=== PATIENT | male | born 1980 | race Caucasian/White ===

== ENCOUNTER 2020-05-08 06:29 | Emergency (ER) | payer SELFPAY ==
[2020-05-08 06:35] VITALS: BP 163/88; PULSE 91; RESP 16; TEMP 36.5; O2SAT 96
--- NOTE | 2020-05-08 07:02 | W.ED.GENAD ---
Discharge Plan Disposition Patient Disposition: HOME Condition: Good Discharge Details Chief Complaint: Laceration Clinical Impression: Laceration of calf Primary Care Provider: Florentin Francis ED Provider: Ben Singh Home Meds and New Rx's Prescriptions: No Action No Known Home Meds RF: 0 Discharge Instructions Instructions: Laceration (ED) Additional Instructions: Please leave the dressing on for 24 hours, then you may remove and begin cleaning the wound at least twice a day with soap and water. Continue to apply antibiotic ointment. Do not directly soak the area. Watch for any signs of infection and return if any increasing redness, swelling, pain, drainage. Please return in 7 to 10 days to have the sutures removed. If you notice any worsening of your symptoms, or any new symptoms such as vomiting, diarrhea, fever, chills, shortness of breath, chest pain, numbness, weakness, or fainting , please return immediately to the emergency department for reevaluation. Please follow up with your primary care provider as soon as possible for reassessment and reevaluation. As always, it was a pleasure participating in your medical care today. Referrals: Florentin Francis [Primary Care Provider] - Medical Decision Making 40-year-old male whose tetanus is not not up-to-date presents today for laceration to his left calf. A binding cementer french cord hit the back of his left calf. No osseous tenderness or deformity. It struck the back gastrocnemius area. Exam demonstrates a triangular shaped laceration, involvement into the subcutaneous fat, but no involvement of the muscle or tendons. He demonstrates normal sensation, normal vascular exam distal to the injury site. Normal muscle strength. His pants were not cut. No indication for radiographic imaging at this time based on history and exam. The area was numbed, irrigated with copious amounts of normal saline chlorhexidine and subsequently suture. Patient tolerated this well. 5 simple interrupted nylon sutures for superficial component and 1 subcutaneous Vicryl suture. Discussed red flags which to return. I have extensively reviewed the treatment plan and discharge instructions with the patient. I have addressed all patient concerns at this time. The patient was made aware of what symptoms to monitor for that would warrant a return to the emergency department. Discussed the plan with the patient, they demonstrate verbal understanding and agreement with our assessment and plan at this time. HPI General Date/Time Provider Initiated Documentation: 05/08/20 06:31. HPI Narrative: Pleasant 40-year-old male with no significant past medical history presents today for laceration to his left calf. Patient states that he binding cementer french cord fell, and a solid metal corner hit his left calf. It did not cut his pants, but he did have a cut to the skin below. He denies any numbness tingling or weakness. He does admit to pain with ambulation. Tetanus has not been updated for quite some time. No other complaints at this time. No other modifying factors. Related Data Home Medications Medication Instructions Recorded Confirmed Unknown [No Known Home Meds] 05/08/20 05/08/20 Allergies Allergy/AdvReac Type Severity Reaction Status Date / Time amoxicillin Allergy Unverified 05/08/20 06:39 Penicillins Allergy Unverified 05/08/20 06:39 General Stated Complaint: Laceration DOUG: 3 Review of Systems All systems reviewed & are unremarkable except as noted in HPI and below PFSH Social History Smoking/Tobacco Use Status: Current every day Tobacco Type: cigarettes Alcohol Intake: current Alcohol Intake frequency: a few times a week Substance use type: does not use Do you feel safe at home: Yes Do you feel safe in your relationship?: Yes Exam Narrative Exam Narrative: 1.Const: Well-nourished, Well-developed, appearing stated age 2.Eyes: PERRL, no conjunctival injection, and symmetrical lids. 3.ENT: Atraumatic external nose and ears. Moist MM. Neck: Symmetric, trachea midline, No thyromegaly. 4.CVS: +S1/S2, No murmurs or gallops. Peripheral pulses 2+ and equal in all extremities. Brisk capillary refill in all extremities. 5.RESP: Unlabored respiratory effort. Clear to auscultation bilaterally. No wheezes rales or rhonchi 6.GI: Soft, Nontender/Nondistended, No hepatosplenomegaly. No guarding or rebound. 7.MSK: Normocephalic/left calf demonstrates triangular-shaped laceration, there is evidence of involvement with the subcutaneous fat, but no evidence of tendon or muscle involvement. The lateral medial edges are roughly 2 cm in length. Patient demonstrates a normal movement for flexion extension eversion and inversion of the foot, use of the gastrocnemius muscle demonstrates no signs of weakness. 8.Skin: Warm, Dry. Please see musculoskeletal 9.Neuro: juvenile probation officer II-XII grossly intact. Sensation grossly intact, no focal neurologic deficits. 10.Psych: (AAO) x3. Appropriate mood and affect Course Vital Signs Vital signs: Vital Signs Temperature 36.5 C 05/08/20 06:35 Pulse 91 H 05/08/20 06:35 Respiratory Rate 16 05/08/20 06:35 Blood Pressure 163/88 H 05/08/20 06:35 Pulse Oximetry 96 05/08/20 06:35 Temperature 36.5 C 05/08/20 06:35 Temperature Source Skin 05/08/20 06:35 Pulse 91 H 05/08/20 06:35 Respiratory Rate 16 05/08/20 06:35 Respiratory Effort Non-Labored 05/08/20 06:39 Blood Pressure 163/88 H 05/08/20 06:35 Blood Pressure Position Supine 05/08/20 06:35 Pulse Oximetry 96 05/08/20 06:35 Oxygen Delivery Method Room Air 05/08/20 06:35 Oxygen Flow Rate 0 05/08/20 06:35 Pain Level 5 05/08/20 06:35 Procedures Laceration Laceration 1: Site: lower extremity (Left calf) Side (If applicable): left Size (cm): 4 Description: irregular Depth: simple, single layer Local Anesthetic: Lidocaine 1% Amount of anesthesia used (mL): 5 Pre-repair: wound explored, irrigated extensively and deep structures intact Skin layer closed with: nylon Size (cm): 4-0 Number of sutures: 6 Technique: simple, interrupted Subcutaneous layer closed with: vicryl Size: 4-0 Number of sutures: 1 Technique: simple, interrupted
--- NOTE | 2020-05-08 07:28 | NUR.NOTE ---
Nursing Note:0720 Bacitracin, telfa, 2 x 2 dressing applied over sutures and then wrapped with roxana and coban. Distal CSM intact.
== END 2020-05-08 07:30 | disposition home or self-care (01) ==
PROVIDERS: Emergency Provider Student in an Organized Health Care Education/Training Program; PCP Family Medicine
DX: S81.822A Laceration with foreign body, left lower leg, initial encounter (principal); W31.89XA Contact with other specified machinery, initial encounter; Y99.0 Civilian activity done for income or pay
CPT/HCPCS: 12002; 90471

== ENCOUNTER 2020-05-16 05:58 | Emergency (ER) | payer SELFPAY ==
[2020-05-16 06:03] VITALS: BP 145/90; PULSE 73; RESP 20; TEMP 36.8; O2SAT 97
--- NOTE | 2020-05-16 06:06 | ED.GENADUL_ITS ---
Discharge Plan Disposition Patient Disposition: HOME Condition: Stable Discharge Details Chief Complaint: SutureRem Clinical Impression: Visit for suture removal Primary Care Provider: Florentin Francis ED Provider: Julien Pak Home Meds and New Rx's Prescriptions: No Action No Known Home Meds RF: 0 Discharge Instructions Instructions: Stitches Removal (ED) Medical Decision Making 40 yo male comes in with suture removal after having them placed on calf a week ago. Has no redness to the wound or pain and wound is well healed, removed 5 devine tures without incident and tolerated well, return precautions given Differential Diagnosis Differential Diagnosis: suture removal HPI General Mode of arrival: ambulatory . Date/Time Provider Initiated Documentation: 05/16/20 05:59 . Limitations to Documentation: no limitations . Information obtained by: patient . History of Present Illness 40 year old M presents to the emergency department with the chief complaint of suture removal, described as moderate, and it has been constant. No relieving factors improve symptom(s), No exacerbating factors reported . Related Data Home Medications Medication Instructions Recorded Confirmed Unknown [No Known Home Meds] 05/08/20 05/08/20 Allergies Allergy/AdvReac Type Severity Reaction Status Date / Time amoxicillin Allergy Unverified 05/08/20 06:39 Penicillins Allergy Unverified 05/08/20 06:39 General Stated Complaint: SutureRem DOUG: 5 Review of Systems All systems reviewed & are unremarkable except as noted in HPI and below Constitutional Constitutional: Denies chills, Denies fever(s) and Denies weakness Cardiovascular Cardiovascular: Denies chest pain and Denies dyspnea Respiratory Respiratory: Denies cough and Denies dyspnea Gastrointestinal Gastrointestinal: Denies abdominal pain, Denies nausea and Denies vomiting Musculoskeletal Musculoskeletal: Denies joint swelling Neurologic Neurologic: Denies weakness [facility] Social History Smoking/Tobacco Use Status: Current every day Tobacco Type: cigarettes Alcohol Intake: current Alcohol Intake frequency: a few times a week Substance use type: does not use Do you feel safe at home: Yes Do you feel safe in your relationship?: Yes Exam Const General: no acute distress Orientation: alert HENMT Head: normal to inspection Ears: external ears normal General nose exam: external nose normal Mouth: moist mucous membranes Eyes General: appearance normal, both eyes and all related structures Neck Neck: normal visual inspection Resp Effort & Inspection: normal respiratory effort and able to speak in complete sentences Cardio Rate: regular rate Skin General skin exam: no rashes or lesions noted Neuro General: patient alert and patient oriented x3 Extrem General: full ROM and capillary refill normal Psych Mental Status: mental status grossly normal Course Vital Signs Vital signs: Vital Signs Temperature 36.8 C 05/16/20 06:03 Pulse 73 05/16/20 06:03 Respiratory Rate 20 05/16/20 06:03 Blood Pressure 145/90 H 05/16/20 06:03 Pulse Oximetry 97 05/16/20 06:03 Temperature 36.8 C 05/16/20 06:03 Temperature Source Temporal Artery Scan 05/16/20 06:03 Pulse 73 05/16/20 06:03 Respiratory Rate 05/16/20 06:03 Blood Pressure 145/90 H 05/16/20 06:03 Pulse Oximetry 97 05/16/20 06:03
== END 2020-05-16 06:15 | disposition home or self-care (01) ==
PROVIDERS: Emergency Provider Emergency Medicine; PCP Family Medicine
DX: S81.822D Laceration with foreign body, left lower leg, subsequent encounter (principal); W31.89XD Contact with other specified machinery, subsequent encounter; Z48.01 Encounter for change or removal of surgical wound dressing

== ENCOUNTER 2024-05-05 11:42 | Outpatient (CLI) | payer MEDICAID, SELFPAY ==
--- NOTE | 2024-05-05 10:00 | DI.RAD_ITS ---
Exam(s) XR ELBOW RT LIMITED EXAM: XR ELBOW RT LIMITED CLINICAL HISTORY: RIGHT ELBOW PAIN. TECHNIQUE: 2D digital imaging was performed of the left elbow. Two images were obtained. AP and la teral views were obtained. COMPARISON: No exams were available for comparison FINDINGS: BONES: No acute fracture is present. No bony destructive lesion is seen. JOINTS: The elbow is normally aligned. No joint effusion is seen. The joint spaces are well maintaine d. SOFT TISSUE: There is a soft tissue calcification adjacent to the lateral epicondyle. IMPRESSION: No acute fracture or dislocation. If there is concern for internal derangement, an MRI should be con sidered. DATA REPOSITORY: RADIATION DOSE DELIVERED:
--- NOTE | 2024-05-05 10:00 | DI.RAD_ITS ---
Exam(s) XR SHOULDER RT COMPLETE 2+V EXAM: XR SHOULDER RT COMPLETE 2+V CLINICAL HISTORY: RIGHT SHOULDER PAIN. TECHNIQUE: 2D digital imaging was performed. Two views. COMPARISON: No exams were available for comparison FINDINGS: BONES: No acute fracture is present. No bony destructive lesion is seen. JOINTS: No dislocation present. Glenohumeral joint space is maintained. AC joint is not well profil ed. SOFT TISSUE: Normal. IMPRESSION: Unremarkable radiographs of the right shoulder. DATA REPOSITORY: RADIATION DOSE DELIVERED:
== END 2024-05-05 11:43 | disposition home or self-care (01) ==
LOC: DIORS 11:42
PROVIDERS: PCP Family Medicine; Visit Provider Student in an Organized Health Care Education/Training Program
DX: M25.511 Pain in right shoulder (principal); M25.521 Pain in right elbow
CPT/HCPCS: 73030; 73070

== ENCOUNTER 2024-06-10 02:13 | Outpatient (CLI) | payer MEDICAID, SELFPAY ==
--- NOTE | 2024-06-10 08:53 | DI.MRI_ITS ---
Exam(s) MR UPPER JOINT RT WO EXAM: MR UPPER JOINT RT WO CLINICAL HISTORY: ? INCOMPLETE FX,CONTUSION RT ELBOW,S50.01XA. TECHNIQUE: Multiplanar multisequence MRI was performed. COMPARISON: CR XR ELBOW RT LIMITED from 05/05/2024 FINDINGS: BONES: There is no fracture or contusion pattern. Small subchondral cysts are seen in the lateral asp ect of the capitellum. JOINTS: The articular cartilage is unremarkable. There is a small amount of fluid in the joint space . TENDONS: Common flexors: There is mild intermediate signal seen in the proximal common flexor tendon which may represent a tendinosis. Common extensors: Unremarkable. Biceps: Unremarkable. Triceps: Very mild intermediate signal seen at the triceps tendon at its insertion site. There is a small amount of edema seen in the surrounding soft tissues. MUSCLES: There is very mild edema seen within and around the deep portion of the supinator muscle on the T2 weighted images. There is otherwise normal signal within the muscles. No significant fatty a trophy is seen. MEDIAN NERVE: Unremarkable on this noncontrast examination. ULNAR NERVE: Unremarkable on this noncontrast examination. SOFT TISSUES: Unremarkable. LIGAMENTS: Ulnar collateral: Unremarkable. Radial collateral: Unremarkable. OTHER: IMPRESSION: 1. No evidence of a fracture. 2. Tendinosis seen in the common flexor tendon and triceps tendon. 3. Nonspecific mild edema seen within and around the deep portion of the supinator muscle on the T2 w eighted images. 4. Unremarkable appearance of the visualized portions of the median and ulnar nerves. No evidence of extrinsic compression. DATA REPOSITORY:
== END 2024-06-10 02:33 ==
LOC: DI 02:13
PROVIDERS: PCP Family Medicine; Visit Provider Student in an Organized Health Care Education/Training Program
DX: S46.311A Strain of muscle, fascia and tendon of triceps, right arm, initial encounter (principal); X58.XXXA Exposure to other specified factors, initial encounter
CPT/HCPCS: 73221

== ENCOUNTER 2024-10-20 16:38 | Emergency (ER) | payer MEDICAID, SELFPAY ==
[2024-10-20 17:08] VITALS: BP 138/94; PULSE 81; RESP 15; TEMP 36.7; O2SAT 98
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
== END 2024-10-20 17:38 | disposition home or self-care (01) ==
PROVIDERS: Emergency Provider Physician Assistant; PCP Family Medicine
DX: T81.49XA Infection following a procedure, other surgical site, initial encounter (principal); Z48.02 Encounter for removal of sutures
CPT/HCPCS: 99283

== ENCOUNTER 2024-12-31 05:35 | Emergency (ER) | payer SELFPAY ==
[2024-12-31 05:41] VITALS: BP 143/89; PULSE 87; RESP 20; TEMP 36.6; O2SAT 97
--- NOTE | 2024-12-31 05:51 | ED.GENADUL_ITS ---
Discharge Plan Disposition Patient Disposition: Home Condition: Good Discharge Details Clinical Impression: URI (upper respiratory infection) Primary Care Provider: Florentin Francis ED Provider: Ben Singh Home Meds and New Rx's Prescriptions: No Action venlafaxine [Effexor XR] 150 mg capsule,extended release 24hr 150 mg PO DAILY lamotrigine [Lamictal] 200 mg tablet 200 mg PO DAILY buprenorphine-naloxone [Suboxone] 8-2 mg film 2 film buccal DAILY Rx Instructions: place 1 film on inside of (each) cheek Discharge Instructions Instructions: Upper Respiratory Infection ED Additional Instructions: At this time you have a viral upper respiratory infection. Your COVID flu and RSV testing was negative. If you notice any worsening of your symptoms, or any new symptoms such as vomiting, diarrhea, fever, chills, shortness of breath, chest pain, numbness, weakness, or fainting , please return immediately to the emergency department for reevaluation. Please follow up with your primary care provider as soon as possible for reassessment and reevaluation. As always, it was a pleasure participating in your medical care today. Stand Alone Forms: Work Release Referrals: Florentin Francis [Primary Care Provider] - Discharge Data Discharge Date/Time-TO BE ENTERED AT DEPARTURE: 12/31/24 07:34 HPI General Date/Time Provider Initiated Documentation: 12/31/24 05:39 . HPI Narrative: This is a pleasant 44-year-old male with past medical history of depression, nicotine use, presents today for evaluation of chills, myalgias, for the last 4 days. Patient states that he has felt unwell for the last 4 days, similar to when he had COVID last. He had a single episode of vomiting earlier tonight, but no abdominal pain tenderness or nausea at this time. He had a mild cough last night, but that resolved on its own. He had a fever 3 days ago on Friday but that has also abated. He denies any neck pain or stiffness. He denies any chest pain or shortness of breath. He denies any numbness or tingling. No other complaints at this time. Related Data Home Medications ?Medication ?Instructions ?Recorded ?Confirmed lamotrigine 200 mg tablet 200 mg PO DAILY 05/05/24 12/31/24 (Lamictal) venlafaxine 150 mg 150 mg PO DAILY 05/05/24 12/31/24 capsule,extended release 24 hr (Effexor XR) buprenorphine 8 mg-naloxone 2 mg 2 film buccal DAILY 08/02/24 12/31/24 sublingual film (Suboxone) Allergies Allergy/AdvReac Type Severity Reaction Status Date / Time amoxicillin Allergy Unknown Unknown Unverified 12/31/24 05:46 Penicillins Allergy Unknown Unknown Unverified 12/31/24 05:46 General Stated Complaint: Fever DOUG: 3 Exam Narrative Exam Narrative: 1.Const: Well-nourished, Well-developed, appearing stated age 2.Eyes: PERRL, no conjunctival injection, and symmetrical lids. 3.ENT: Atraumatic external nose and ears. Moist MM. Neck: Symmetric, trachea midline, No thyromegaly. No neck stiffness or meningeal symptoms. No erythema in the posterior oropharynx. Tympanic membranes are clark and pearly. 4.CVS: +S1/S2, Peripheral pulses 2+ and equal in all extremities. Brisk capillary refill in all extremities. 5.RESP: Unlabored respiratory effort. Clear to auscultation bilaterally. No wheezes rales or rhonchi 6.GI: Soft, Nontender/Nondistended, No hepatosplenomegaly. No guarding or rebound. 7.MSK: Normocephalic/Atraumatic, Extremities w/o deformity or ttp No cyanosis or clubbing, Normal movement of all extremities 8.Skin: Warm, Dry. No rashes or lesions. 9.Neuro: clerk general office II-XII grossly intact. Sensation grossly intact, no focal neurologic deficits. 10.Psych: (AAO) x3. Appropriate mood and affect Course Vital Signs Vital signs: Vital Signs Temperature 36.6 C 12/31/24 05:41 Pulse 87 12/31/24 05:41 Respiratory Rate 20 12/31/24 05:41 Blood Pressure 143/89 H 12/31/24 05:41 Pulse Oximetry 97 12/31/24 05:41 Temperature 36.6 C 12/31/24 05:41 Temperature Source Temporal Artery Scan 12/31/24 05:41 Pulse 87 12/31/24 05:41 Respiratory Rate 20 12/31/24 05:41 Blood Pressure 143/89 H 12/31/24 05:41 Blood Pressure Position Sitting 12/31/24 05:41 Pulse Oximetry 97 04/18/25 05:41 Oxygen Delivery Method Room Air 12/31/24 05:41 Oxygen Flow Rate 0 12/31/24 05:41 Pain Level 8 12/31/24 05:41 Medical Decision Making This is a pleasant 44-year-old male with past medical history of depression, nicotine use, presents today for evaluation of chills, myalgias, for the last 4 days. Patient states that he has felt unwell for the last 4 days, similar to when he had COVID last. He had a single episode of vomiting earlier tonight, but no abdominal pain tenderness or nausea at this time. He had a mild cough last night, but that resolved on its own. He had a fever 3 days ago on Friday but that has also abated. He denies any neck pain or stiffness. He denies any chest pain or shortness of breath. He denies any numbness or tingling. No other complaints at this time. Exam demonstrates notably well-appearing male, he is mildly hypertensive but no fever or tachycardia. No crackles wheezes or rhonchi to suggest pneumonia, no neck stiffness or fever or headache to suggest meningitis. No erythema in the oropharynx or erythema in the ears to suggest otitis media or pharyngitis. No chest pain or pleuritic chest pain to suggest PE or cardiac etiology. Symptoms appear consistent with a mild viral upper respiratory infection. We will test for flu and COVID, monitor closely and reassess. COVID flu and RSV negative. Patient feels well, vital signs stable with no evidence of sepsis, no concerning evidence to suggest pneumonia at this time, no evidence to suggest meningitis. Patient will be discharged home with recommendations for supportive therapy, and return if symptoms change or worsen. I have extensively reviewed the treatment plan and discharge instructions with the patient. I have addressed all patient concerns at this time. The patient was made aware of what symptoms to monitor for that would warrant a return to the emergency department. Discussed the plan with the patient, they demonstrate verbal understanding and agreement with our assessment and plan at this time. The documentation in this chart was dictated using [employer] dictation software. Please excuse any dictation errors. Quality:SDOH Health Related Social Needs: No Data to Display PFSH All Active Problems (Updated 12/31/24 @ 07:20 by Ben Singh DO) URI (upper respiratory infection) (Acute) Right elbow pain (Acute) Depression (Chronic) Anxiety (Chronic) Right carpal tunnel syndrome (Acute) Cubital tunnel syndrome on right (Acute) Contusion of right elbow (Acute) Medical History (Updated 12/31/24 @ 07:20 by Ben Singh DO) Opiate dependence Nicotine addiction Social History Smoking/Tobacco Use Status: Current every day Tobacco Type: cigarettes Smoking risk assessment performed?: Yes Alcohol Intake: current Alcohol Intake frequency: a few times a week Drug use: Never Substance use type: does not use Do you feel safe at home: Yes Do you feel safe in your relationship?: Yes
[2024-12-31 06:50] LABS: COVID-19 PCR Negative (Negative); Influenza A PCR Negative (Negative); Influenza B PCR Negative (Negative); RSV PCR Negative (Negative)
[2024-12-31 07:10] LABS: Source Nasopharynx
[2024-12-31 07:32] VITALS: BP 128/83; PULSE 72; RESP 18; O2SAT 98
== END 2024-12-31 07:34 | disposition home or self-care (01) ==
PROVIDERS: Emergency Provider Student in an Organized Health Care Education/Training Program; PCP Family Medicine
DX: J06.9 Acute upper respiratory infection, unspecified (principal); F17.210 Nicotine dependence, cigarettes, uncomplicated
CPT/HCPCS: 87637; 99283

== ENCOUNTER 2025-01-28 19:12 | Outpatient (REF) | payer SELFPAY ==
[2025-01-28 21:55] LABS: Hemoglobin A1C 5.5 % (<5.7)
[2025-01-28 21:58] LABS: ALT 30 U/L (16-63); AST 21 U/L (15-37); Albumin 3.9 g/dL (3.4-5.0); Alkaline Phosphatase 126 U/L (46-116); Bilirubin, Total 0.2 mg/dL (0.2-1.0); Calculated LDL 95 mg/dL (<100); Cholesterol 162 mg/dL (<200); HDL Cholesterol 52 mg/dL (>or=40); Total Protein 7.1 g/dL (6.4-8.2); Triglyceride 79 mg/dL (<150)
[2025-01-28 22:08] LABS: Bilirubin, Direct 0.1 mg/dL (0.0-0.2)
== END 2025-01-28 19:13 | disposition home or self-care (01) ==
LOC: NCHCN 19:12
PROVIDERS: PCP Family Medicine; Visit Provider Student in an Organized Health Care Education/Training Program
DX: F11.21 Opioid dependence, in remission (principal); Z13.220 Encounter for screening for lipoid disorders; Z13.1 Encounter for screening for diabetes mellitus
CPT/HCPCS: 80061; 80076; 83036

== ENCOUNTER 2025-04-13 15:15 | Outpatient (REF) | payer SELFPAY ==
[2025-04-13 15:37] LABS: Abs Immature Grans 0.03 10^3/uL (0.0-0.06); HCT 40.0 % (40.0-50.0); HGB 13.0 g/dL (13.5-17.5); Immature Grans % 0.3 %; MCH 27.7 pg (27.0-33.0); MCHC 32.5 % (32.0-36.0); MCV 85 fL (80-95); MPV 9.6 fL (8.0-11.0); Platelet Count 299 10^3/uL (130-400); RBC 4.69 10^6/uL (4.36-5.78); RDW 12.4 % (11.8-14.1); RDW-SD 38.3 fL; WBC 8.71 10^3/uL (4.4-10.8)
[2025-04-13 16:16] LABS: TSH 0.95 uIU/mL (0.36-3.74)
== END 2025-04-13 15:16 | disposition home or self-care (01) ==
LOC: NCHCN 15:15
PROVIDERS: PCP Family Medicine; Visit Provider Student in an Organized Health Care Education/Training Program
DX: R53.83 Other fatigue (principal)
CPT/HCPCS: 84443; 85025